=== PATIENT | female | born 1995 | race Caucasian/White ===

== ENCOUNTER 2017-03-06 16:12 | Emergency (ER) | payer BC, OTHER ==
[~2017-03-06] VITALS: Ht 154.9 cm; Wt 41.7 kg
[2017-03-06 16:15] VITALS: Ht 154.9 cm; Wt 41.7 kg
--- NOTE | 2017-03-06 17:39 | EMERGENCY ROOM VISIT NOTE ---
History Report prepared by Scribe: Phyllis Powers Under the Supervision of: Dr. Bradford Burton M.D. First contact with patient: 17:24 Chief Complaint: SYNCOPE Stated Complaint: FELL IN THE SHOWER SAT, DIZZY, TIRED Nursing Triage Summary: pt hit her elbow on sat night and passed out in the shower, pt hit her head several times, per her fiance. pt c/o headache and concerned that she may have a concussion History of Present Illness The patient is a 21 year old white female with a past medical history of anxiety who presents to the ED with a cc of syncope that occurred 2 days ago. As she was washing her hair in the shower 2 days ago, she hit her elbow on the shower door. She then began to feel "nauseous and dizzy", and had a syncopal episode. According to her fiance, she "hit her head several times on the tub floor". When she regained consciousness, she complained of a headache, but was at her baseline mentally. Her LMP was last month and normal. 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 Positive headache. Negative fever, sore throat, chest pain, abdominal pain, pain or swelling in her legs. The patient denies any ETOH or illegal drug use. Source of History: patient Onset: 2 days EARLY INTERVENTION SPECIALIST Position: other (global) Quality: other (syncope) Timing: resolved Associated Symptoms: + headache, No fevers, No sorethroat, No chest pain, No abdominal pain Review of Systems See HPI for pertinent positives and negatives. A total of ten systems were reviewed and were otherwise negative. Past Medical & Surgical Medical Problems: (1) Anxiety Social History Smoking Status: Never Smoker Alcohol Use: none Drug Use: none Marital Status: in relationship Housing Status: lives with significant other Occupation Status: employed Current/Historical Medications Scheduled Control Pills ( Control Pills), 1 TAB PO DAILY Fluoxetine (Prozac), 20 MG PO DAILY Ondasetron Odt (Zofran Odt), 4 MG SL Q6H Allergies Coded Allergies: Amoxicillin (Verified Allergy, Unknown, hives, 03/06/17) Physical Exam Vital Signs Date Time Temp Pulse Resp B/P (MAP) Pulse Ox O2 Delivery O2 Flow Rate FiO2 03/06/17 19:12 36.8 82 18 118/88 97 03/06/17 19:11 82 18 118/88 97 Room Air 03/06/17 16:15 36.8 82 18 129/91 97 Room Air Physical Exam GENERAL: Awake, alert, well-appearing, NAD HENT: Normocephalic, atraumatic. Mild right sided forehead tenderness to palpation, small hematoma, no ecchymosis. No evidence of trauma. EYES: Normal conjunctiva. Sclera non-icteric. NECK: Supple. No nuchal rigidity. FROM. RESPIRATORY: CTAB, no rhonchi, wheezing, crackles CARDIAC: RRR, no MRG ABDOMEN: Soft, NTND, BS+ MSK: No chest wall TTP, no LE edema NEURO: GCS 15, CN 2-12 intact, moves all 4s on command. PERRL 3 mm bilaterally. Post visual acuity intact. 5/5 LE strength. No sensory deficit. Good finger to nose. SKIN: No rash or jaundice noted. Medical Decision & Procedures ER Provider Diagnostic Interpretation: Radiology results as stated below per my review and radiologist interpretation: SINGLE VIEW CHEST CLINICAL HISTORY: Syncope. FINDINGS: An AP, portable, upright chest radiograph is obtained. No prior studies are available for comparison at the time of dictation. The examination is degraded by portable technique and patient rotation. The cardiomediastinal silhouette is unremarkable. The lungs and pleural spaces are clear. No pneumothorax is seen. The bony thorax is grossly intact. IMPRESSION: No active disease in the chest. Electronically signed by: Deng Hernandez M.D. 03/06/2017 5:56 PM Laboratory Results Test 03/06/17 17:33 Bedside Glucose 111 mg/dl (70-90) Laboratory results reviewed by me Medications Administered Medications (Trade) Dose Ordered Sig/Terri Route Start Time Stop Time Status Last Admin Dose Admin Acetaminophen (Tylenol Tab) 650 mg NOW STAT PO 03/06/17 17:42 03/06/17 17:44 DC 03/06/17 17:56 650 MG Ondansetron HCl (Zofran Odt) 4 mg NOW STAT PO 03/06/17 17:42 03/06/17 17:44 DC 03/06/17 17:56 4 MG Ibuprofen (Advil Tab) 400 mg NOW STAT PO 03/06/17 17:42 03/06/17 17:44 DC 03/06/17 17:56 400 MG ECG Indication: syncope Rate (beats per minute): 67 Rhythm: normal sinus Findings: other (normal intervals, normal axis. No STS change or T-wave inversions) ED Course 1728: The patient was evaluated in room A4. A complete history and physical exam was performed. 1829: I reevaluated the patient. She is feeling much better. I discussed her results and discharge instructions and she verbalized complete understanding and agreement. Medical Decision Medication Reconciliation: I attest that I have personally reviewed the patient' s current medication list Blood pressure screening: Patient was found to have normal blood pressure on screening and does not require follow-up. The patient is a 21 year old white female with a past medical history of anxiety who presents to the ED with a cc of syncope that occurred 2 days ago. Triage Nursing notes reviewed. The patient's presentation and history were concerning for concussion, dehydration and . Patient was evaluated at the bedside. We discussed that the patient may have experienced situational syncope secondary to pain. All the patient had mild headache patient had no focal neurological deficits and do not take any blood thinning medications. Patient had a fairly benign EKG and chest x-ray. Patient 's UPT was negative. I discussed that the patient should continue taking medications for her headache. Patient should also continue to hydrate. Patient was gives her follow-up, discharge, return precautions. Patient was also given follow-up with [facility] orthopedic concussion clinic if she has persistent symptoms. Patient family agreed with plan of care and patient was safely discharged home. Impression Primary Impression: Situational syncope Additional Impressions: Headache NAUSEA Scribe Attestation The scribe's documentation has been prepared under my direction and personally reviewed by me in its entirety. I confirm that the note above accurately reflects all work, treatment, procedures, and medical decision making performed by me. Departure Information Dispostion Home / Self-Care Prescriptions Ondasetron Odt (ZOFRAN ODT) 4 Mg Tab 4 MG SL Q6H for Nausea, #6 TAB Prov: Bradford Burton M.D. 03/06/17 Referrals [facility] Patient Instructions Concussion Dc, My [facility], Syncope Causes Additional Instructions Please return to the emergency department if you have worsening or recurrent symptoms not amenable to at-home treatment. Please call for a follow-up appointment with her primary care physician. Please take your medications as prescribed. If you have other concerns and/or complaints please feel free to also call your primary care physician's office or return the ED for further evaluation, management, and treatment. Please take up to 800 mg of Motrin or ibuprofen every 6 hours no more than 3200mg in 24 hrs. Please take with food and do not take for more than 2 consecutive days. You may take up to 1000 mg of Tylenol or acetaminophen every 6 hours, no more than 4000mg in 24 hrs. Please follow up with her PCP if you have worsening symptoms or recurrent symptoms. You may call [facility] orthopedics for the concussion clinic. Work Instructions Return To Work: 2 days Specific Date: 03/08/17 Problem Qualifiers Additional Impressions: Headache Headache type: post-traumatic Headache chronicity pattern: acute headache Intractability: not intractable Qualified Codes: G44.319 - Acute post- traumatic headache, not intractable
[2017-03-06] MEDS ORDERED: ONDANSETRON 4MG OD TAB PO STA (17:42)
[2017-03-06] MEDS ORDERED: ACETAMINOPHEN 325 MG TAB PO STA (17:42)
[2017-03-06] MEDS ORDERED: IBUPROFEN 200 MG TAB PO STA (17:42)
[2017-03-06] MEDS ORDERED: BCPILLS PO (17:52)
[2017-03-06] MEDS ORDERED: FLUO20CA35 PO (17:52)
--- NOTE | 2017-03-06 17:57 | DIAGNOSTIC IMAGING REPORT ---
SINGLE VIEW CHEST CLINICAL HISTORY: Syncope. FINDINGS: An AP, portable, upright chest radiograph is obtained. No prior studies are available for comparison at the time of dictation. The examination is degraded by portable technique and patient rotation. The cardiomediastinal silhouette is unremarkable. The lungs and pleural spaces are clear. No pneumothorax is seen. The bony thorax is grossly intact. IMPRESSION: No active disease in the chest. Electronically signed by: Deng Hernandez M.D. 03/06/2017 5:56 PM Dictated Date/Time: 03/06/2017 5:55 PM
[2017-03-06] MEDS ORDERED: ONDA4TAB10 SL (18:35)
[2017-03-06 19:12] VITALS: BP 118/88; PULSE 82; TEMP 36.8; O2SAT 97
== END 2017-03-06 19:12 | disposition home or self-care (01) ==
LOC: C.EDB 16:14 → C.EDA 19:12
DX: R55 Syncope and collapse (principal); F43.20 Adjustment disorder, unspecified; R51 Headache; R11.0 Nausea; F41.9 Anxiety disorder, unspecified; Z79.899 Other long term (current) drug therapy; Z88.1 Allergy status to other antibiotic agents